=== PATIENT | male | born 1955 | race Asian ===

== ENCOUNTER 2022-08-30 10:15 | Emergency (ER) | payer MEDICARE, MEDICAID ==
[~2022-08-30] VITALS: Ht 165.1 cm; Wt 70.0 kg
[~2022-08-30 10:15] MED LIST: ONDA4TAB6 PO
[2022-08-30 10:53] VITALS: BP 150/93
[2022-08-30] MEDS ORDERED: BENZ-38 PO (11:50)
[2022-08-30] MEDS ORDERED: GUAI400T92 PO (11:50)
== END 2022-08-30 12:02 | disposition home or self-care (01) ==
LOC: ER 10:16
DX: R05.9 Cough, unspecified (principal); J02.9 Acute pharyngitis, unspecified; Z72.89 Other problems related to lifestyle; Z79.899 Other long term (current) drug therapy
CPT/HCPCS: 99283

== ENCOUNTER 2024-09-28 00:16 | Emergency (ER) | payer MEDICARE, MEDICAID ==
[~2024-09-28] VITALS: Ht 165.1 cm; Wt 77.2 kg
[~2024-09-28 00:16] MED LIST changes: +GUAI400T92 PO
[2024-09-28] MEDS ORDERED: KETO15CR2 TP (02:36)
[2024-09-28 02:58] VITALS: BP 153/82; PULSE 82; RESP 16; TEMP 98.1; O2SAT 98
== END 2024-09-28 02:56 | disposition home or self-care (01) ==
LOC: ER 00:16
DX: L30.4 Erythema intertrigo (principal); I10 Essential (primary) hypertension; Z79.899 Other long term (current) drug therapy; Z72.89 Other problems related to lifestyle
CPT/HCPCS: 99283; A6250